=== PATIENT | female | born 1960 | race Caucasian/White ===

== ENCOUNTER 2018-03-09 08:10 | Outpatient (CLI) | payer OTHER | END 2018-03-10 07:41 | disposition home or self-care (01) | LOC: SONOGRAMA 08:10 | DX: E04.1 Nontoxic single thyroid nodule (principal) ==

== ENCOUNTER 2021-03-07 08:33 | Outpatient (CLI) | payer OTHER | END 2021-03-07 12:25 | disposition home or self-care (01) | LOC: SONOGRAMA 08:33 | DX: E04.1 Nontoxic single thyroid nodule (principal) ==